=== PATIENT | male | born 1945 | race Native Hawaiian/Other Pacific Islander ===

== ENCOUNTER 2021-06-16 14:23 | Outpatient (CLI) | payer OTHER ==
[~2021-06-16 14:23] MED LIST: COZAAR100 MG PO; GABA300C2 PO; GRALISE600 MG OR; GRALISE600 MG PO; TERAZOSIN1 MG PO
== END 2021-06-16 19:46 | disposition home or self-care (01) ==
LOC: LAB 14:23
PROVIDERS: ATTEND Family Medicine
DX: R33.8 Other retention of urine (principal)
CPT/HCPCS: 81000; 87077; 87086; 87088; 87186